=== PATIENT | female | born 1975 | race Caucasian/White ===

== ENCOUNTER 2017-01-16 18:20 | Emergency (ER) | payer MEDICAID ==
[~2017-01-16 18:20] MED LIST: CLOTRIMAZOLE; IRON1 TAB; NEXIUM20 MG; PREMPHASE 0.621 EAC1 PO; TOPAMAX25 M2 PO; [UNRECOGNIZED DRUG - OTHER] PO
[2017-01-16] MEDS ORDERED: LEVAQUIN500 M1 PO (20:57)
[2017-01-16] MEDS ORDERED: HYDROCODON-ACE1 EA16 PO (20:58)
[2017-01-16] MEDS ORDERED: TRILEPTAL300 M2 PO (20:59)
[2017-02-28] MEDS ORDERED: FLEET ENEMA133 ML PR (22:45)
== END 2017-01-16 23:24 ==
LOC: EDMED 18:20
DX: S20.211A Contusion of right front wall of thorax, initial encounter (principal); S30.0XXA Contusion of lower back and pelvis, initial encounter; J44.9 Chronic obstructive pulmonary disease, unspecified; W20.8XXA Other cause of strike by thrown, projected or falling object, initial encounter
CPT/HCPCS: J1885